=== PATIENT | female | born 1985 | race Caucasian/White ===

== ENCOUNTER 2018-10-11 13:57 | Outpatient (CLI) | payer MEDICAID ==
[~2018-10-11] VITALS: Ht 162.6 cm; Wt 73.7 kg
[2018-10-11 14:23] VITALS: Ht 162.6 cm; Wt 73.7 kg
[2018-10-11] MEDS ORDERED: PREN-93 PO (14:25)
--- NOTE | 2018-10-11 16:44 | PN ---
Triage Information Date/Time Reason for visit: Uterine contractions Weeks of Gestation 35+ /Para n/a Diabetes: none Hypertention: none Objective Heart Rate: 140's Contractions: None Results/Medications Results 24 hrs Laboratory Tests Test 10/11/18 14:47 Fibronectin NEGATIVE Disposition: Discharge Assessment/Plan FFN neg CXL WNL No blood in vaginal vault Precautions discussed Questions answered Follow up with provider Return to Hospital in 2 days for NST BILLIE NEGRETE M.D. Oct 11, 2018 16:44
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
== END 2018-10-11 16:55 | disposition home or self-care (01) ==
LOC: OBT 13:57 → L-D 13:57 → OBT 16:55
PROVIDERS: ATTEND Obstetrics & Gynecology
DX: O47.03 False labor before 37 completed weeks of gestation, third trimester (principal); Z3A.37 37 weeks gestation of pregnancy
CPT/HCPCS: 76815; 76817; 76818; 82731; Z7500; G0463

== ENCOUNTER 2018-12-06 14:48 | Outpatient (CLI) | payer MEDICAID ==
[~2018-12-06] VITALS: Ht 162.6 cm; Wt 79.5 kg
[~2018-12-06 14:48] MED LIST: DOCU-144 PO; IBUP-1542 PO; PREN-93 PO
[2018-12-06 15:14] VITALS: Ht 162.6 cm; Wt 79.5 kg
== END 2018-12-06 17:00 | disposition home or self-care (01) ==
LOC: OBT 14:48 → L-D 14:52 → OBT 17:00
PROVIDERS: ATTEND Obstetrics & Gynecology
DX: O48.0 Post-term pregnancy (principal); Z3A.40 40 weeks gestation of pregnancy
CPT/HCPCS: 76815; 76818; Z7500; G0463

== ENCOUNTER 2018-12-08 09:42 | Inpatient (IN) | payer MEDICAID ==
[~2018-12-08] VITALS: Ht 162.6 cm; Wt 79.4 kg
[2018-12-08 09:58] VITALS: BP 124/63; PULSE 66; RESP 19; Ht 162.6 cm; Wt 79.4 kg
[2018-12-08] MEDS ORDERED: IBUPROFEN 600 MG TAB PO PRN (13:30)
[2018-12-08] MEDS ORDERED: AMPICILLIN 2 GM/NS (PMX) 100 ML IV ONE (13:30)
[2018-12-08] MEDS ORDERED: BUTORPHANOL 2 MG INJ IV PRN ×2 (13:30)
[2018-12-08] MEDS ORDERED: LIDOCAINE 1% (MPF) 30 ML INJ INJ PRN (13:30)
[2018-12-08] MEDS ORDERED: METHYLERGONOVINE 0.2 MG INJ IM PRN (13:30)
[2018-12-08] MEDS ORDERED: OXYTOCIN 30 UNITS/LR 500 ML IV PRN (13:30)
[2018-12-08] MEDS ORDERED: MISOPROSTOL 200 MCG TAB PR PRN (13:30)
[2018-12-08] MEDS ORDERED: CARBOPROST 250 MCG INJ IM PRN (13:30)
[2018-12-08] MEDS ORDERED: OXYTOCIN 30 UNITS/LR 500 ML IV SCH ×3 (13:30→22:00)
[2018-12-08] MEDS: LACTATED RINGER'S 1,000 ML IV SCH ×3 (13:38→21:24)
[2018-12-08] MEDS ORDERED: FENTAnyl 2MCG/ML-ROPIV 0.2% 100 ML ONE (19:54)
[2018-12-08] MEDS ORDERED: NALOXONE (0.4 MG/ML) INJ IV PRN (20:00)
[2018-12-08] MEDS ORDERED: ONDANSETRON 4 MG INJ IV PRN (20:00)
[2018-12-08] MEDS ORDERED: DIPHENHYDRAMINE 50 MG INJ IV PRN (20:00)
[2018-12-08] MEDS: AMPICILLIN 1 GM/NS (PMX) 50 ML IV SCH (21:24)
[2018-12-09] MEDS: AMPICILLIN 1 GM/NS (PMX) 50 ML IV SCH ×6 (03:41→17:30)
[2018-12-09] MEDS: FENTAnyl 2MCG/ML-ROPIV 0.2% 100 ML BAG EPI SCH ×3 (04:05→18:03)
[2018-12-09] MEDS: LACTATED RINGER'S 1,000 ML IV SCH ×2 (04:05→12:45)
[2018-12-09] MEDS ORDERED: MINERAL OIL 30ML CUP PO ONE (16:00)
[2018-12-09] MEDS ORDERED: MINERAL OIL LIGHT 10 ML VIAL TOP ONE (16:30)
[2018-12-09] MEDS ORDERED: CLINDAMYCIN 900 MG (PMX) 50 ML IVPB ONE (19:15)
[2018-12-09] MEDS: CLINDAMYCIN 900 MG (PMX) 50 ML IVPB SCH (19:21)
[2018-12-09 21:15] VITALS: BP 139/66; PULSE 53; RESP 19
[2018-12-09] MEDS ORDERED: METHYLERGONOVINE 0.2 MG INJ IM PRN (21:30)
[2018-12-09] MEDS ORDERED: ZOLPIDEM 5 MG TAB PO PRN (21:30)
[2018-12-09] MEDS ORDERED: OXYTOCIN 30 UNITS/LR 500 ML IV PRN (21:30)
[2018-12-09] MEDS ORDERED: LANOLIN HPA 1 PKT TOP PRN (21:30)
[2018-12-09] MEDS ORDERED: WITCH HAZEL/GLYCERIN PAD PR PRN (21:30)
[2018-12-09] MEDS ORDERED: BENZOCAINE 20% 56 ML SPRAY TOP PRN (21:30)
[2018-12-09] MEDS ORDERED: MISOPROSTOL 200 MCG TAB PR PRN (21:30)
[2018-12-09] MEDS ORDERED: CARBOPROST 250 MCG INJ IM PRN (21:30)
[2018-12-09] MEDS ORDERED: OXYCODONE/ASPIRIN (4.88/325) TAB PO PRN ×2 (21:30)
[2018-12-09 22:00] VITALS: BP 129/89; PULSE 52; RESP 17
[2018-12-09] MEDS: SENNA/DOCUSATE NA (8.6MG/50MG) TAB PO SCH (22:54)
[2018-12-10 00:05] VITALS: BP 124/72; PULSE 54; RESP 18
[2018-12-10] MEDS: LACTATED RINGER'S 1,000 ML IV SCH ×3 (01:00→21:13)
[2018-12-10 03:48] VITALS: BP 117/62; PULSE 59; RESP 18
[2018-12-10] MEDS: IBUPROFEN 600 MG TAB PO SCH ×5 (05:14→23:55)
[2018-12-10] MEDS: CLINDAMYCIN 900 MG (PMX) 50 ML IVPB SCH ×3 (05:15→21:50)
[2018-12-10 08:30] VITALS: BP 123/58; PULSE 60; RESP 18
[2018-12-10] MEDS: SENNA/DOCUSATE NA (8.6MG/50MG) TAB PO SCH ×2 (09:04→21:50)
[2018-12-10 15:30] VITALS: BP 97/55; PULSE 56; RESP 18
[2018-12-10 20:15] VITALS: BP 98/56; PULSE 55; RESP 18
[2018-12-11 04:00] VITALS: BP 107/67; PULSE 60; RESP 18
[2018-12-11] MEDS: LACTATED RINGER'S 1,000 ML IV SCH (05:13)
[2018-12-11] MEDS: CLINDAMYCIN 900 MG (PMX) 50 ML IVPB SCH (05:52)
[2018-12-11] MEDS: IBUPROFEN 600 MG TAB PO SCH ×3 (05:52→17:48)
[2018-12-11 08:00] VITALS: BP 101/62; PULSE 59; RESP 18
[2018-12-11] MEDS ORDERED: DIPHTH/TET/ACEL PERTUSS (ADULT) 0.5 ML VIAL IM* ONE (09:00)
[2018-12-11] MEDS: SENNA/DOCUSATE NA (8.6MG/50MG) TAB PO SCH ×2 (09:04→21:50)
[2018-12-11 15:38] VITALS: BP 100/56; PULSE 56; RESP 16
[2018-12-11 20:00] VITALS: BP 102/56; PULSE 56; RESP 18
[2018-12-12] MEDS: IBUPROFEN 600 MG TAB PO SCH ×3 (00:12→11:31)
[2018-12-12 04:00] VITALS: BP 110/58; PULSE 66; RESP 18
[2018-12-12 08:15] VITALS: BP 116/57; PULSE 58; RESP 16
[2018-12-12] MEDS: SENNA/DOCUSATE NA (8.6MG/50MG) TAB PO SCH (08:59)
[2018-12-12 15:40] VITALS: BP 110/66; PULSE 76; RESP 18
[2018-12-12 15:45] VITALS: BP 109/67; PULSE 65; RESP 18
== END 2018-12-12 16:40 | disposition home or self-care (01) | DRG 806 ==
LOC: OBT 09:42 → L-D 09:43 → OBT 12:30 → L-D 12:30 → PP1 12-09 21:11
PROVIDERS: ADMIT Obstetrics & Gynecology; ATTEND Obstetrics & Gynecology
PROC: 10E0XZZ Delivery of Products of Conception, External Approach (ICD-10-PCS; principal; 2018-12-09)
DX: O48.0 Post-term pregnancy (principal); D62 Acute posthemorrhagic anemia; Z37.0 Single live birth; Z3A.40 40 weeks gestation of pregnancy; O99.02 Anemia complicating childbirth
CPT/HCPCS: 62322; 76818; 85025; 85610; 85730; 86592; 86850; 86900; 86901; 88307; 93970; G0463; J0290; J2210; J2590; J3010; J7120